=== PATIENT | female | born 2000 | race Caucasian/White ===

== ENCOUNTER 2018-12-17 14:11 | Emergency (ER) | payer OTHER ==
[~2018-12-17] VITALS: Ht 157.5 cm; Wt 52.3 kg
[2018-12-17 14:20] VITALS: BP 102/63
[2018-12-17] MEDS ORDERED: L-NO1TBD14 PO (14:24)
[2018-12-17] MEDS ORDERED: DROX300C PO (14:24)
[2018-12-17] MEDS ORDERED: LEVE500T53 PO (14:24)
[2018-12-17] MEDS ORDERED: DICY10 PO (14:24)
[2018-12-17] MEDS ORDERED: IVAB7.5T PO (14:24)
[2018-12-17] MEDS ORDERED: ASEN5TAB6 SL (14:24)
[2018-12-17] MEDS ORDERED: RIZA10TA27 PO (14:24)
[2018-12-17] MEDS ORDERED: PRAZ2 PO (14:24)
== END 2018-12-17 14:30 | disposition left against medical advice (07) ==
LOC: EMS 14:12
DX: G40.909 Epilepsy, unspecified, not intractable, without status epilepticus (principal); F17.210 Nicotine dependence, cigarettes, uncomplicated; Z91.018 Allergy to other foods
CPT/HCPCS: 93005